=== PATIENT | male | born 1960 | race Caucasian/White ===

== ENCOUNTER 2022-07-18 14:47 | Outpatient (CLI) | payer BC, SELFPAY | END 2022-07-18 14:48 | disposition home or self-care (01) | LOC: AMB 07-19 02:45 | PROVIDERS: Visit Provider Family Medicine | DX: R53.1 Weakness (principal) | CPT/HCPCS: A0425; A0427 ==

== ENCOUNTER 2022-07-18 15:14 | Emergency (ER) | payer BC, SELFPAY ==
[2022-07-18 15:17] VITALS: BP 154/99; PULSE 72; RESP 18; TEMP 36.3; O2SAT 94; BMI 28.2
--- NOTE | 2022-07-18 15:41 | ED_ITS ---
HPI - General Adult General Time Seen by Provider: 15:42 Date Seen: 07/18/22 Chief complaint: Neuro Symptoms/Altered Deficit Stated complaint: Possible Stroke Time Seen by Provider: 07/18/22 15:41 Source: patient, EMS and RN notes reviewed Mode of arrival: EMS Limitations: no limitations History of Present Illness HPI narrative: Patient is a 61-year-old male brought in after an episode of maybe 5 seconds of left facial numbness, inability to speak, some hand tingling. He felt like his heart was racing at that time. When paramedics obtained his vitals, his blood pressure was elevated at 180, pulse was normal in the 80s. He states he absolutely could not talk during that episode. It resolved quickly without intervention but did feel tired afterwards. He has not had a stroke before, does not have any history of hypertension or diabetes, no prior vascular history. He believes his cholesterol maybe has been elevated in the past but he has never had to go on treatment for it. His mom had a history of many mini strokes causing dementia. 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 He has no idea what his left face looked like. Just notes that he could not speak at all for about 5 seconds. Related Data Home Medications Medication Instructions Recorded Confirmed No Known Home Medications 07/18/22 07/18/22 Allergies Allergy/AdvReac Type Severity Reaction Status Date / Time No Known Drug Allergies Allergy Verified 07/18/22 16:26 Review of Systems Status of ROS: Reports: 10 or more systems reviewed and unremarkable except as noted in History and below [facility] Medical History (Updated 07/18/22 @ 18:22 by Karly Snow MD) Hypertension Social History Smoking Status: Never smoker Do you use any of these nicotine containing products: None Second hand tobacco smoke exposure: No How often do you have a drink containing alcohol: monthly or less How often do you have six or more drinks on one occasion: Never AUDIT-C Alcohol total score: 1 service: No Exam Const: Vital Signs, click to edit/add: Vital Signs - 24 hr 07/18/22 15:17 07/18/22 17:13 Temperature 97.4 F L Pulse Rate 59 L Pulse Rate [Right Pulse Oximeter] 72 Respiratory Rate 18 Blood Pressure [Ri ght Upper Arm] 154/99 H Pulse Oximetry 94 95 Oxygen Delivery Me thod Room Air Documenting provider has reviewed patient's vital signs: yes Common normals: no apparent distress, average body habitus, oriented x3, no limitations, healthy appearing, alert and well nourished General appearance: cooperative, comfortable, well kempt and well developed HENMT: Common normals: normocephalic, head/scalp atraumatic, hearing grossly normal bilaterally, external ears normal, TM's normal bilaterally, external nose normal, nasal mucous membranes and turbinates normal, moist oral mucous membranes, oropharynx normal, dentition normal and gingiva normal Head and scalp: normocephalic and atraumatic Nose: external nose normal and nasal mucous membranes and turbinates normal External ear: external ears normal Tympanic membrane: TM's normal bilaterally Eye: Common normals: PERRL, EOMs intact bilaterally, conjunctivae normal, no scleral icterus and normal visual goel by confrontation Conjunctiva: conjunctiva(e) normal Pupil: PERRL Neck & C-Spine: Common normals: full ROM, no lymphadenopathy, supple, no meningeal signs, no JVD and thyroid normal Thyroid: thyroid normal Resp: Common normals: normal respiratory effort, no retractions, no use of accessory muscles and clear to auscultation bilaterally Auscultation: clear to auscultation bilaterally Cardio: Common normals: no JVD, regular rate, regular rhythm, S1 normal heart sound, S2 normal heart sound, no gallops, no clicks, no murmurs and no rub Rate: regular rate Rhythm: regular rhythm Heart sounds: S1 normal and S2 normal GI: Common normals: Normal to inspection, nondistended, normoactive bowel sounds present, soft to palpation, non-tender, no hepatosplenomegaly and no masses Palpation: soft and no hepatosplenomegaly Extremity: Common normals: no calf tenderness and no pedal edema Neuro: Common normals: oriented x3, CN's II-XII intact bilaterally, moves all extremities, no focal motor deficits and no sensory deficits noted Sensorium/orientation: alert Meningeal signs: no meningeal signs Speech: speech normal Psych: Appearance: well kempt Course Course Hospital Course: This seems like a brief duration and patient is completely neurologically intact at this time, NIH is 0. Still, has definite symptomatology that could fit in with a TIA. Will proceed with head CT and then CTA of head neck. Will have him on cardiac monitoring and pulse oximetry here. He did ask if obstructive sleep apnea puts him at risk for stroke. Did review with him that certainly arrhythmias such as atrial fibrillation have a higher incidence in sleep apnea patients. At this time, will also do full complement of labs. Will watch him here. Reevaluation(s) Reevaluation #1: Have reviewed with them no evidence of any stroke. Did review this with [facility] on-call at [place]. The do not recommend inpatient workup, questioned even if this could have been a TIA due to its very short duration. Nonetheless, did agree with my recommendations for daily aspirin and further outpatient evaluation. Return if recurrent symptoms. Patient is from [place], will get into a primary when he gets back home. Time: 18:10 Vital Signs Vital signs: Initial Vital Signs Temperature 97.4 F L 07/18/22 15:17 Temperature Source Temporal Artery Scan 07/18/22 15:17 Pulse Rate 72 07/18/22 15:17 Respiratory Rate 18 07/18/22 15:17 Blood Pressure 154/99 H 07/18/22 15:17 Blood Pressure Mean 117 07/18/22 15:17 Blood Pressure Position Sitting 07/18/22 15:17 Pulse Oximetry 94 07/18/22 15:17 Oxygen Delivery Method 07/18/22 15:17 Vital Signs Temperature 97.4 F L 07/18/22 15:17 Pulse Rate 72 07/18/22 15:17 Respiratory Rate 18 07/18/22 15:17 Blood Pressure 154/99 H 07/18/22 15:17 Pulse Oximetry 94 07/18/22 15:17 Oxygen Delivery Method 07/18/22 15:17 Temperature 97.4 F L 07/18/22 15:17 Pulse Rate 59 L 07/18/22 17:13 Respiratory Rate 18 07/18/22 15:17 Blood Pressure 154/99 H 07/18/22 15:17 Pulse Oximetry 95 07/18/22 17:13 Oxygen Delivery Method 07/18/22 15:17 Medical Decision Making Lab Data Labs: Lab Results 07/18/22 07/18/22 07/18/22 Range/Units 15:51 16:07 16:07 WBC 9.70 (4.50-11.00) K/uL RBC 5.02 (4.30-5.90) m/uL Hgb 15.1 (13.5-17.5) gm/dL Hct 44.7 (37.0-53.0) % MCV 89 (80-100) fL MCH 30 (26-34) pg MCHC 34 (32-36) gm/dL RDW Coeff of [place] 12.9 (11.5-15.5) % Plt Count 334 (140-440) K/uL Neut % (Auto) 78.3 H (42.0-72.0) % Lymph % (Auto) 12.7 L (20-44) % [place] % (Auto) 8.2 (0.0-11.0) % Eos % (Auto) 0.2 (0.0-7.0) % Baso % (Auto) 0.4 (0.0-3.0) % Neut # (Auto) 7.60 H (1.7-7.0) K/uL Lymph # (Auto) 1.20 (0.90-2.90) K/uL [place] # (Auto) 0.80 (0.00-0.90) K/UL Eos # (Auto) 0.02 (0.00-0.50) K/uL Baso # (Auto) 0.04 (0.00-0.30) K/uL INR 0.98 (0.91-1.10) APTT 29 (23-33) Seconds Sodium (135-149) mmol/L Potassium (3.6-5.1) mmol/L Chloride (96-114) mmol/L Carbon Dioxide (20-32) mmol/L BUN (7-30) mg/dL Creatinine (0.5-1.5) mg/dL Estimated Creat Clear Estimated GFR ml/min Glucose (60-115) mg/dL Calcium (8.4-10.6) mg/dL Total Bilirubin (0.1-1.5) mg/dL AST (12-35) U/L ALT (4-50) U/L Alkaline Phosphatase (40-150) U/L C-Reactive Protein (0.5-1.0) mg/dL NT-Pro-B Natriuret Pep pg/mL Total Protein (6.0-8.3) g/dL Albumin (3.3-5.0) g/dL SARS-CoV-2 (PCR) Negative SARS-CoV-2 (Negative) POC Troponin I (0.01-0.04) ng/ml 07/18/22 07/18/22 Range/Units 16:07 16:07 WBC (4.50-11.00) K/uL RBC (4.30-5.90) m/uL Hgb (13.5-17.5) gm/dL Hct (37.0-53.0) % MCV (80-100) fL MCH (26-34) pg MCHC (32-36) gm/dL RDW Coeff of [place] (11.5-15.5) % Plt Count (140-440) K/uL Neut % (Auto) (42.0-72.0) % Lymph % (Auto) (20-44) % [place] % (Auto) (0.0-11.0) % Eos % (Auto) (0.0-7.0) % Baso % (Auto) (0.0-3.0) % Neut # (Auto) (1.7-7.0) K/uL Lymph # (Auto) (0.90-2.90) K/uL [place] # (Auto) (0.00-0.90) K/UL Eos # (Auto) (0.00-0.50) K/uL Baso # (Auto) (0.00-0.30) K/uL INR (0.91-1.10) APTT (23-33) Seconds Sodium 139 (135-149) mmol/L Potassium 3.9 (3.6-5.1) mmol/L Chloride 107 (96-114) mmol/L Carbon Dioxide 24 (20-32) mmol/L BUN 20 (7-30) mg/dL Creatinine 1.1 (0.5-1.5) mg/dL Estimated Creat Clear 65.10 Estimated GFR 76 ml/min Glucose 96 (60-115) mg/dL Calcium 9.6 (8.4-10.6) mg/dL Total Bilirubin 2.5 H (0.1-1.5) mg/dL AST 24 (12-35) U/L ALT 26 (4-50) U/L Alkaline Phosphatase 34 L (40-150) U/L C-Reactive Protein < 0.5 L (0.5-1.0) mg/dL NT-Pro-B Natriuret Pep 29 pg/mL Total Protein 7.5 (6.0-8.3) g/dL Albumin 4.4 (3.3-5.0) g/dL SARS-CoV-2 (PCR) (Negative) POC Troponin I 0.00 L (0.01-0.04) ng/ml Imaging Data CT scan - head: Attestation: I have reviewed the pertinent imaging results. Radiologist's impression: Patient: SANJUANITA EVANS Facility:?[facility] Patient ID:?[id number] Site Patient ID:?[id number]. Site :?[id number] Study:?CT Head w/o Contrast Stroke Protocol-07/18/2022 4:25:32 PM Ordering Physician:Rolan Brandt Final Report: INDICATION: Left facial numbness, unable to speak, weakness, beginning at 2 p.m. today. TECHNIQUE: Noncontrast axial CT of the head. Coronal and sagittal reformats. Bone and soft tissue algorithms. COMPARISON: No relevant comparison studies available at this institution. FINDINGS: The ventricles and cortical sulci appear within normal limits. No acute intracranial hemorrhage or extra-axial fluid collection. Leavitt-white matter differentiation is grossly maintained. White matter attenuation is unremarkable for age. Intracranial vessels are unremarkable for technique. Midline structures are unremarkable. Bony calvarium appears grossly intact. Retention cyst/polyp right maxillary sinus. No air-fluid level. No mastoid effusion. Unremarkable orbits. IMPRESSION: No CT evidence of acute intracranial abnormality. Please note that all CT scans at this facility use dose modulation, iterative reconstruction, and/or weight-based dosing when appropriate to reduce radiation dose to as low as reasonably achievable. Dictated by Gissel Sheridan MD @ 07/18/2022 4:52:02 PM (Electronic Signature) CT- Other: Attestation: I have reviewed the pertinent imaging results. Radiologist's impression: Patient: SANJUANITA EVANS Facility:?[facility] Patient ID:?[id number] Site Patient ID:?[id number]. Site :?[id number] Study:?CT Neck Angio Angio w/ 95cc [id number] 4:28:43 PM Ordering Physician:Rolan Brandt Preliminary Report: CTA head: No evidence of intracranial large vessel occlusion or critical stenosis. CTA neck: No evidence of flow-limiting stenosis in the neck. Dictated by Gissel Sheridan MD @ 07/18/2022 4:56:36 PM Read by:?Gissel Sheridan MD @ 07/18/2022 16:56:43 ECG Data Attestation: I personally reviewed and interpreted this ECG as follows: (Sinus bradycardia, 57 beats per minute. No ischemia, no arrhythmia, QT corrected 367 milliseconds.) Prior ECG tracings: not available for review Discharge Plan Discharge Clinical Impression: Transient cerebral ischemia Patient Disposition: Home, Self-Care Condition: Stable Instructions: Transient Ischemic Attack (ED), Stroke (DC) Additional Instructions: Recommend daily 81 mg aspirin until further notice. Need to follow-up with your primary care provider as soon as your home. Recommend outpatient cardiac monitoring to make sure you are not having any underlying arrhythmias. Your primary care provider can refer you to neurology or continue to do outpatient workup for you. Your cholesterol should probably be rechecked as well as part of this. In the interim, if you have any return of symptoms, need to seek emergent re-evaluation. Activity Level: Activity as Tolerated Discharge Diet: Heart Healthy (2 gm sodium, low fat) Prescriptions: No Action No Known Home Medications Follow Up/Referrals: Provider,Not a Local [Primary Care Provider] - Stand Alone Forms: MissingLINKth Info Instructions
--- NOTE | 2022-07-18 15:50 | CRLHL7_ITS ---
For Patients: As a result of the Century Cures Act, medical imaging exams and procedure reports are released immediately into your electronic medical record. You may view this report before your referring provider. If you have questions, please contact your health care provider. INDICATION: Left facial numbness, unable to speak, weakness, beginning at 2 p.m. today. TECHNIQUE: Noncontrast axial CT of the head. Coronal and sagittal reformats. Bone and soft tissue algorithms. COMPARISON: No relevant comparison studies available at this institution. FINDINGS: The ventricles and cortical sulci appear within normal limits. No acute intracranial hemorrhage or extra-axial fluid collection. Leavitt-white matter differentiation is grossly maintained. White matter attenuation is unremarkable for age. Intracranial vessels are unremarkable for technique. Midline structures are unremarkable. Bony calvarium appears grossly intact. Retention cyst/polyp right maxillary sinus. No air-fluid level. No mastoid effusion. Unremarkable orbits. IMPRESSION: No CT evidence of acute intracranial abnormality. Please note that all CT scans at this facility use dose modulation, iterative reconstruction, and/or weight-based dosing when appropriate to reduce radiation dose to as low as reasonably achievable. Dictated by Gissel Sheridan MD @ 07/18/2022 4:52:02 PM (Electronically Signed)
--- NOTE | 2022-07-18 15:51 | CRLHL7_ITS ---
For Patients: As a result of the Century Cures Act, medical imaging exams and procedure reports are released immediately into your electronic medical record. You may view this report before your referring provider. If you have questions, please contact your health care provider. DATE: 07/18/2022. CLINICAL HISTORY: Numbness on left side of face; inability to speak. TECHNIQUE: Standard helical CT image acquisition through the head and neck was performed after intravenous contrast bolus enhancement. Multiplanar reconstructed images were performed and interpreted. COMPARISON: None available. FINDINGS: The origins of the great vessels from the aortic arch are patent. The origins of the right and left vertebral arteries are patent. The common carotid arteries are patent. No significant luminal stenoses of the proximal internal carotid arteries by NASCET criteria. The more distal cervical segments of the internal carotid arteries are patent. The cervical segments of the vertebral arteries are patent. No intracranial proximal large vessel occlusion or flow-limiting luminal stenosis. No evidence of cerebral aneurysm or findings to suggest an arteriovenous shunting lesion. IMPRESSION: 1. No intracranial proximal large vessel occlusion or flow-limiting luminal stenosis. 2. Patent cervical arterial vasculature without hemodynamically significant luminal stenosis. Please note that all CT scans at this facility use dose modulation, iterative reconstruction, and/or weight-based dosing when appropriate to reduce radiation dose to as low as reasonably achievable. Dictated by Kulwinder Brown MD @ 07/19/2022 9:16:55 AM (Electronically Signed)
[2022-07-18 16:20] LABS: Basophils Absolute Auto 0.04 K/uL (0.00-0.30); Basophils Percent Auto 0.4 % (0.0-3.0); Eosinophils Absolute Auto 0.02 K/uL (0.00-0.50); Eosinophils Percent Auto 0.2 % (0.0-7.0); Hematocrit 44.7 % (37.0-53.0); Hemoglobin* 15.1 gm/dL (13.5-17.5); Immature Granulocytes Abs Auto 0.02 K/uL (0.00-0.30); Immature Granulocytes Pct Auto 0.2 %; Lymphocytes Percent Auto 12.7 % (20-44); Mean Corpuscular HGB Conc 34 gm/dL (32-36); Mean Corpuscular Hemoglobin 30 pg (26-34); Mean Corpuscular Volume 89 fL (80-100); Monocytes Percent Auto 8.2 % (0.0-11.0); Neutrophils Percent Auto 78.3 % (42.0-72.0); Platelet Count* 334 K/uL (140-440); RDW Coefficient of Variation % 12.9 % (11.5-15.5); Red Blood Count 5.02 m/uL (4.30-5.90)
[2022-07-18 16:30] LABS: Slide Review Reflex Yes
[2022-07-18 16:39] LABS: Chloride* 107 mmol/L (96-114); INR 0.98 (0.91-1.10); Potassium* 3.9 mmol/L (3.6-5.1); Prothrombin Time 13.6 Seconds
[2022-07-18 16:40] LABS: Albumin* 4.4 g/dL (3.3-5.0); Partial Thromboplastin Time* 29 Seconds (23-33)
[2022-07-18 16:43] LABS: Alanine Aminotransferase* 26 U/L (4-50); Alkaline Phosphatase* 34 U/L (40-150); Aspartate Amino Transferase* 24 U/L (12-35); Bilirubin Total* 2.5 mg/dL (0.1-1.5); Blood Urea Nitrogen* 20 mg/dL (7-30); Calcium* 9.6 mg/dL (8.4-10.6); Carbon Dioxide* 24 mmol/L (20-32); Creatinine* 1.1 mg/dL (0.5-1.5); Estimated Glomerular Filt Rate 76 ml/min; Glucose* 96 mg/dL (60-115); Total Protein* 7.5 g/dL (6.0-8.3)
[2022-07-18 16:46] LABS: C Reactive Protein* < 0.5 mg/dL (0.5-1.0)
[2022-07-18 16:50] LABS: SARS PCR* Negative SARS-CoV-2 (Negative)
[2022-07-18 17:02] LABS: NT Pro B Type NatriureticPept* 29 pg/mL
[2022-07-18 17:13] VITALS: PULSE 59; O2SAT 95
[2022-07-18 17:15] VITALS: PULSE 66; O2SAT 96
[2022-07-18 17:30] VITALS: PULSE 64; O2SAT 94
[2022-07-18 17:42] LABS: Sodium* 139 mmol/L (135-149)
[2022-07-18 17:45] VITALS: PULSE 57; O2SAT 94
[2022-07-18 18:00] VITALS: PULSE 61; O2SAT 96
[2022-07-18] MEDS: ASPIRIN 81 MG TAB.CHEW PO (18:19)
[2022-07-18 20:48] LABS: Slide Review Acceptable Review (Acceptable)
== END 2022-07-18 18:35 | disposition home or self-care (01) ==
PROVIDERS: Emergency Provider Family Medicine
DX: G45.9 Transient cerebral ischemic attack, unspecified (principal)
CPT/HCPCS: 36415; 70450; 70496; 70498; 80053; 83880; 84484; 85025; 85610; 85730; 86140; 87635; 93005; 94761; 99284; 99285; A9270; Q9967